=== PATIENT | male | born 1975 | race Caucasian/White ===

== ENCOUNTER 2020-08-23 06:08 | Emergency (ER) | payer OTHER ==
[2020-08-23 06:16] VITALS: BP 134/82; PULSE 56; TEMP 97.8; BMI 28.1
== END 2020-08-23 07:24 | disposition home or self-care (01) ==
LOC: FER 06:08
DX: S92.501A Displaced unspecified fracture of right lesser toe(s), initial encounter for closed fracture (principal); W22.8XXA Striking against or struck by other objects, initial encounter
CPT/HCPCS: 73660-TC-FY; 99283-25